=== PATIENT | female | born 1980 | race Caucasian/White ===

== ENCOUNTER 2016-08-04 09:27 | Emergency (ER) | payer MEDICAID ==
[~2016-08-04] VITALS: Ht 157.5 cm; Wt 78.0 kg
[~2016-08-04 09:27] MED LIST: LEVO500T72 PO; ONDA-43 PO; TRAM-40 PO
[2016-08-04 09:33] VITALS: Ht 157.5 cm; Wt 78.0 kg
[2016-08-04 10:51] LABS: URINE BLOOD (Dip) POC Trace-intact (NEGATIVE)
[2016-08-04] MEDS ORDERED: KETOROLAC 30 MG INJ IM STA (11:01)
[2016-08-04] MEDS ORDERED: NITR-58 PO (11:15)
--- NOTE | 2016-08-04 11:35 | ERD ---
ER Documentation Chief Complaint Date/Time DATE: 08/04/16 TIME: 11:30 Chief Complaint iud stuck in vagina HPI Patient is a 36 year old female who presents to the ED with dysuria, urgency, sciatica and a check of her IUD. She states that she has a history of sciatica and states that her symptoms present are similar to what she has had in the past. She states that she usually takes ibuprofen for her symptoms. She states the pain is located on her right side down her leg. She denies weakness. Denies bowel or bladder incontience. Denies abdominal pain, nausea, vomiting, diarrhea or constipation. She states that she is currently sexually active with her . She states that she had sexual intercourse yesterday and would like her IUD checked. She states that she is due for a new IUD in 1 month. She states that she is planning on going to [facility] to have her IUD removed and replaced. She denies hematuria. She is unsure of her last normal menstrual period. She denies pelvic pain. She denies back pain. She denies headache, dizziness, chest pain, shortness of breath or difficulty breathing. She is also requesting a note for work. Denies leg pain or swelling. Denies shortness of breath. Denies recent travel, recent surgeries or OCP use. ROS All systems reviewed and are negative except as per history of present illness. Medications Home Meds Active Scripts Nitrofurantoin Monohyd Macrocr* (Macrobid*) 100 Mg Capsr, 100 MG PO BID for 7 Days, CAP Prov:MACIEL CRABTREE PA-C 08/04/16 Reported Medications Tramadol Hcl* (Ultram*) 50 Mg Tablet, 50 MG PO Q8 Y for PAIN, TAB 05/09/15 Levofloxacin* (Levaquin*) 500 Mg Tablet, 500 MG PO DAILY, TAB 05/09/15 Ondansetron Hcl* (Zofran*) 4 Mg Tab, 4 MG PO Q6H Y for NAUSEA AND OR VOMITING, TAB 05/09/15 Allergies Allergies: Coded Allergies: Sulfa (Sulfonamide Antibiotics) (Verified Allergy, Unknown, 08/13/13) ceftriaxone (Unverified Allergy, Unknown, 05/09/15) PMhx/Soc History of Surgery: Yes (appendectomy in 2007) Anesthesia Reaction: No Hx Neurological Disorder: No Hx Respiratory Disorders: No Hx Cardiac Disorders: No Hx Psychiatric Problems: No Hx Miscellaneous Medical Probl: Yes (thyroid disorder) Hx Alcohol Use: Yes Hx Substance Use: No Hx Tobacco Use: No Smoking Status: Never smoker FmHx Family History: No coronary disease, No diabetes, No other Physical Exam Vitals Vital Signs Date Time Temp Pulse Resp B/P Pulse Ox O2 Delivery O2 Flow Rate FiO2 08/04/16 09:33 98.1 90 20 140/90 99 Physical Exam GENERAL: Well-developed, well-nourished female. Appears in no acute distress. HEAD: Normocephalic, atraumatic. ABDOMEN: No scars, ecchymosis or rashes noted. Soft, nontender, and nondistended. Positive bowel sounds in all four quadrants. No rebound tenderness , no guarding. (-) McBurneys point tenderness. No CVA tenderness. EXAM: No CMT, no pelvic pain. No erythema no rashes. No abnormal vaginal discharge. BACK: No midline tenderness. Extremities: Equal pulses bilaterally. No peripheral clubbing, cyanosis or edema. No unilateral leg swelling. Reflexes intact bilaterally NEUROLOGIC: Alert and oriented. Moving all four extremities. 5/5 strength in all extremities. Normal speech. Steady gait. SKIN: Normal color. Warm and dry. No rashes or lesions. Capillary refill < 2 seconds Results 24 hrs Laboratory Tests Test 08/04/16 10:49 Bedside Urine pH (LAB) 7.0 Bedside Urine Protein (LAB) Trace Bedside Urine Glucose (UA) Negative Bedside Urine Ketones (LAB) Negative Bedside Urine Blood Trace-intact Bedside Urine Nitrite (LAB) Negative Bedside Urine Leukocyte Esterase (L Trace Current Medications Medications (Trade) Dose Ordered Sig/Venkata Route PRN Reason Start Time Stop Time Status Last Admin Dose Admin Ketorolac Tromethamine (Toradol) 30 mg ONCE STAT IM 08/04/16 11:01 08/04/16 11:02 DC 08/04/16 11:05 Procedures/MDM ER COURSE: I kept the patient and/or family informed of laboratory and diagnostic imaging results throughout the emergency room course. MEDICAL DECISION MAKING: This is a 36-year-old female who presents with complaint. Vital signs were reviewed. Patient is afebrile. Patient is not hypoxic. Patient is not toxic or ill-appearing. Patient has a UTI. Her urine shows trace leukocytes with no nitrites. Low suspicion for ovarian torsion, PID, tuboovarian abscess, ectopic , bowel obstruction, pyelonephritis, appendicitis, cervicitis, septic , molar , HELLP syndrome, preeclampsia, eclampsia, placenta previa, placenta abruptia. Her test is negative. Toradol 30 mg IM was given to patient in the ED. Tolerated well with no adverse reaction. Stated improvement in symptoms. Low suspicion for cauda equine syndrome, spinal epidural hematoma, spinal epidural abscess, osteomyelitis, fracture, aortic dissection, AAA, pyelonephritis, nephrolithiasis, septic stone, obstructed stone. DISCHARGE: At this time, patient is stable for discharge and outpatient management with no new complaints during the ER course. Patient was sent home with Macrobid and to follow-up with her primary care regarding her chronic sciatica. I also given note to patient for work. Patient will be following up with [facility] for her IUD removal and replacement today. Patient will be discharged home with instructions to recheck for new or worsening symptoms such as fever, nausea, weakness, LOC and to follow up with primary care in the next 1-2 days. Patient was advised to return to the ER for any new or worsening symptoms. Plan was discussed and patient and/or family understands and agrees. Home instructions were given. Departure Diagnosis: Primary Impression: Sciatica Laterality: right Qualified Code: M54.31 - Sciatica of right side Additional Impression: UTI (urinary tract infection) Urinary tract infection type: site unspecified Hematuria presence: without hematuria Qualified Code: N39.0 - Urinary tract infection without hematuria, site unspecified Condition: Stable Patient Instructions: Understanding Urinary Tract Infections (UTIs) Additional Instructions: Call your primary care doctor TOMORROW for an appointment during the next 1-2 days.See the doctor sooner or return here if your condition worsens before your appointment time. MACIEL CRABTREE PA-C Aug 04, 2016 11:35
== END 2016-08-04 11:22 | disposition home or self-care (01) ==
LOC: FTE 09:27
DX: M54.31 Sciatica, right side (principal); N39.0 Urinary tract infection, site not specified
CPT/HCPCS: 81003; 96372; J1885; Z7502

== ENCOUNTER 2016-08-18 21:32 | Emergency (ER) | payer MEDICAID ==
[~2016-08-18] VITALS: Ht 157.5 cm; Wt 88.5 kg
[~2016-08-18 21:32] MED LIST changes: +NITR-58 PO
[2016-08-18 22:38] VITALS: Ht 157.5 cm; Wt 88.5 kg
[2016-08-18] MEDS ORDERED: ONDANSETRON (ODT) 4 MG TAB ODT STA (23:37)
[2016-08-18] MEDS ORDERED: KETOROLAC 30 MG INJ IM STA (23:37)
[2016-08-18 23:51] LABS: URINE BLOOD (Dip) POC Trace-intact (NEGATIVE)
[2016-08-19] MEDS ORDERED: IBUP-1542 PO (00:08)
[2016-08-19] MEDS ORDERED: CYCL-319 PO (00:08)
[2016-08-19 00:27] VITALS: BP 144/91; PULSE 73; RESP 18; TEMP 98
--- NOTE | 2016-08-19 02:07 | ERD ---
ER Documentation Chief Complaint Date/Time DATE: 08/19/16 TIME: 02:04 Chief Complaint Flank pain right side and Sciatica pain HPI This patient is a 28-year-old female with history of sciatica who presents to the emergency department with right sided paraspinal lumbar pain with radiation down her right leg which is been ongoing for the past 3 days intermittently. The patient was seen at the [place] emergency department yesterday and was diagnosed with sciatica. She states she was given a shot but does not remember the name. Additionally the patient reports dysuria. She denies nausea, vomiting, diarrhea, fevers, chills, or other symptoms at this time. ROS All systems reviewed and are negative except as per history of present illness. Medications Home Meds Active Scripts Cyclobenzaprine Hcl* (Cyclobenzaprine Hcl*) 10 Mg Tablet, 10 MG PO TID, #15 TAB Prov:AYO BURTON PA-C 08/19/16 Ibuprofen* (Motrin*) 600 Mg Tab, 600 MG PO Q6, #30 TAB Prov:AYO BURTON PA-C 08/19/16 Nitrofurantoin Monohyd Macrocr* (Macrobid*) 100 Mg Capsr, 100 MG PO BID for 7 Days, CAP Prov:MACIEL CRABTREE PA-C 08/04/16 Reported Medications Tramadol Hcl* (Ultram*) 50 Mg Tablet, 50 MG PO Q8 Y for PAIN, TAB 05/09/15 Levofloxacin* (Levaquin*) 500 Mg Tablet, 500 MG PO DAILY, TAB 05/09/15 Ondansetron Hcl* (Zofran*) 4 Mg Tab, 4 MG PO Q6H Y for NAUSEA AND OR VOMITING, TAB 05/09/15 Allergies Allergies: Coded Allergies: Sulfa (Sulfonamide Antibiotics) (Verified Allergy, Unknown, 08/13/13) ceftriaxone (Unverified Allergy, Unknown, 05/09/15) PMhx/Soc History of Surgery: Yes (appendectomy in 2007) Anesthesia Reaction: No Hx Neurological Disorder: No Hx Respiratory Disorders: No Hx Cardiac Disorders: No Hx Psychiatric Problems: No Hx Miscellaneous Medical Probl: Yes (thyroid disorder) Hx Alcohol Use: Yes Hx Substance Use: No Hx Tobacco Use: No FmHx Noncontributory for chief complaint Physical Exam Vitals Vital Signs Date Time Temp Pulse Resp B/P Pulse Ox O2 Delivery O2 Flow Rate FiO2 08/19/16 00:27 98.0 73 18 144/91 98 08/18/16 22:38 98.0 85 18 160/102 98 Physical Exam Const: The patient is resting in the gurney and appears to be in mild acute pain. Head: Atraumatic Eyes: Normal Conjunctiva ENT: Normal External Ears, Nose and Mouth. Neck: Full range of motion..~ No meningismus. Resp: Clear to auscultation bilaterally Cardio: Regular rate and rhythm, no murmurs Abd: Soft, non tender, non distended. Normal bowel sounds Skin: No petechiae or rashes Back: No midline or flank tenderness. There is tenderness to palpation of the right paraspinal lumbar muscles. There is positive straight leg raise on the right side. Ext: No cyanosis, or edema Neur: Awake and alert Psych: Normal Mood and Affect Results 24 hrs Laboratory Tests Test 08/18/16 23:50 Bedside Urine pH (LAB) 6.0 Bedside Urine Protein (LAB) Negative Bedside Urine Glucose (UA) Negative Bedside Urine Ketones (LAB) Trace Bedside Urine Blood Trace-intact Bedside Urine Nitrite (LAB) Negative Bedside Urine Leukocyte Esterase (L Negative Current Medications Medications (Trade) Dose Ordered Sig/Venkata Route PRN Reason Start Time Stop Time Status Last Admin Dose Admin Ondansetron HCl (Zofran Odt) 4 mg ONCE STAT ODT 08/18/16 23:37 08/18/16 23:38 DC 08/18/16 23:52 Ketorolac Tromethamine (Toradol) 30 mg ONCE STAT IM 08/18/16 23:37 08/18/16 23:38 DC 08/18/16 23:52 Procedures/MDM 28-year-old female presents secondary to complaints of right-sided sciatic pain. On physical examination the patient's vitals are within normal limits. The patient's blood pressure is slightly elevated at 160/102. The patient's blood pressure was elevated (>120/80) but appears stable without evidence of hypertension emergency or urgency. The patient was counseled about the risks of hypertension and urged to pursue outpatient monitoring and therapy within a week with their primary care physician. The patient was given IM Toradol in the department and was feeling improved on reevaluation. I have low suspicion for cauda equina, epidural abscess, spondylolisthesis, vertebral body fracture, or other emergent conditions. The patient will be given prescriptions for Flexeril and ibuprofen. The patient is stable for outpatient management. The patient agrees with the diagnosis and discharge plan. The patient was advised to return to the department immediately with any new or worsening symptoms. The patient demonstrates understanding of this information. All questions and concerns were addressed and the patient was hemodynamically stable prior to discharge. Departure Diagnosis: Primary Impression: Low back pain Condition: Fair Patient Instructions: Understanding Sciatica, Back Pain W/ Sciatica Referrals: [facility] YOU HAVE RECEIVED A MEDICAL SCREENING EXAM AND THE RESULTS INDICATE THAT YOU DO NOT HAVE A CONDITION THAT REQUIRES URGENT TREATMENT IN THE EMERGENCY DEPARTMENT. FURTHER EVALUATION AND TREATMENT OF YOUR CONDITION CAN WAIT UNTIL YOU ARE SEEN IN YOUR DOCTORS OFFICE WITHIN THE NEXT 1-2 DAYS. IT IS YOUR RESPONSIBILITY TO MAKE AN APPOINTMENT FOR FOLOW-UP CARE. IF YOU HAVE A PRIMARY DOCTOR --you should call your primary doctor and schedule an appointment IF YOU DO NOT HAVE A PRIMARY DOCTOR YOU CAN CALL OUR PHYSICIAN REFERRAL HOTLINE AT IF YOU CAN NOT AFFORD TO SEE A PHYSICIAN YOU CAN CHOSE FROM THE FOLLOWING [facility] [address] [facility]. [facility] [address] [facility] [address] [facility] [address] [facility]. [facility] [address] [facility]. [facility] [address] [place] Additional Instructions: Follow-up with your primary care physician within 1 week. Return to the emergency department immediately should you have any new or worsening symptoms, uncontrolled fevers, or other unexplained symptoms. Take all medications as directed. Do not operate heavy machinery or drive after taking muscle relaxers. AYO BURTON PA-C Aug 19, 2016 02:07
== END 2016-08-19 00:26 | disposition home or self-care (01) ==
LOC: FTE 21:32
DX: M54.5 Low back pain (principal)
CPT/HCPCS: 81003; J1885; Z7610; 96372

== ENCOUNTER 2018-04-01 09:58 | Emergency (ER) | END 2018-04-01 12:02 | disposition home or self-care (01) ==